=== PATIENT | female | born 1980 | race Caucasian/White ===

== ENCOUNTER 2020-08-13 13:56 | Emergency (ER) | payer OTHER, SELFPAY ==
[2020-08-13 14:05] VITALS: BP 142/79; PULSE 73; RESP 14; TEMP 36.9; O2SAT 97; BMI 27.8
--- NOTE | 2020-08-13 14:24 | HMH.EDUTC ---
[facility] [place] Clinical Impression: Sinusitis Qualifiers: Sinusitis location: unspecified location Chronicity: acute Recurrence: non-recurrent Qualified Code(s): J01.90 - Acute sinusitis, unspecified Disposition: Home, Self-Care Condition on Discharge: Good Instructions: Sinusitis, DI for Sinusitis Additional Instructions: Drink plenty of fluids. Take tylenol for pain or fever. Return if you begin to have difficulty breathing. Follow up with your regular doctor. GO TO THE ER FOR ANY WORSENING SYMPTOMS Prescriptions: Brompheniramine/Pseudoephed/Dm [Bromfed Dm Cough Syrup] 5 ml PO Q6HP PRN #240 syrup PRN Reason: Cough Transmission Status: Received by [facility] Azithromycin [Z-Chinmay 250mg Tab*] 250 mg PO UD DOSE PK #6 tab Transmission Status: Received by [facility] Referrals: Poly Horn [Primary Care Provider] - Forms: Work/School Release Time of Disposition: 14:25 Medical Decision Making - Medical Records Medical records reviewed: No: I reviewed the patient's medical records. - Kyle Inquiry Pt receiving controlled substance: No Vital Signs: 08/13/20 14:05 08/13/20 14:28 Temperature 98.5 F 98.5 F Temperature Source Oral Pulse Rate 73 Pulse Rate [Right Brachial] 73 Respiratory Rate 14 14 Blood Pressure 142/79 H Blood Pressure [Right Arm] 142/79 H Blood Pressure Mean [Right Arm] 100 Blood Pressure Source [Right Arm] Automatic Cuff Blood Pressure Position [Right Arm] Sitting 02 Sat by Pulse Oximetry 97 Oxygen Delivery Method Room Air Orders (Tests/Meds): ORDERS Category Date Time Status Covid-19 Nasal PCR ([facility]) Routine Lab 08/13/20 14:10 [place] [facility] [place] - General Stated complaint: cov test Time Seen by Provider: 08/13/20 14:05 Mode of Arrival: Ambulatory Source of Information: Patient Limitations: No Limitations Description of Symptoms (Recalled from Triage Doc. by RN): PATIENT C/O HEADACHE, SINUS CONGESTION, SOA, AND LOSS OF SMELL. WAS RECENTLY EXPOSED TO COVID HEENT Symptoms (Recalled from RN notes): Yes Resp Symptoms (Recalled from RN notes): No Skin Symptoms (Recalled from RN notes): No MS Symptoms (Recalled from RN notes): No Functional Status (Recalled from RN notes): WNL - History of Present Illness Provider Complaint: She c/o 2 days of chest and sinus congestion. She has also lost her sense of smell. - Related Data Previous Rx's Medication Instructions Recorded Azithromycin [Z-Chinmay 250mg Tab*] 250 mg PO UD DOSE PK #6 tab 08/13/20 Brompheniramine/Pseudoephed/Dm 5 ml PO Q6HP PRN #240 syrup 08/13/20 [Bromfed Dm Cough Syrup] Allergies Allergy/AdvReac Type Severity Reaction Status Date / Time prednisone [PREDNISONE] Allergy Unknown SEVERE Verified 08/13/20 14:18 RESPIRTORY ISSUES tramadol [TRAMADOL] Allergy Unknown SEVERE Verified 08/13/20 14:18 RESPIRTORY ISSUE - Worker's Comp Is this a Worker's Comp case?: No [facility] History - Hepatitis A Screen Drug use history?: No High risk sexual behaviors?: No History of sexually transmitted infection?: No Currently employed?: No Childcare worker?: No Do you have indoor plumbing?: Yes Do you have electricity?: Yes Attestation statement:: This patient has been screened for Hepatitis A risk factors. I have reviewed the patient's past medical history: Yes - Social History Alcohol Intake: never Occupational Status: other ROS Obtained: Yes All systems reviewed & no additional complaints - Constitutional Constitutional: Reports system reviewed and no additional complaints, except as docu - Eyes Eyes: Reports system reviewed and no additional complaints, except as docu - ENT Ears, Nose, Mouth, and Throat: Reports system reviewed and no additional complaints, except as docu - Cardiovascular Cardiovascular: Reports system reviewed and no additional complaints, except as docu - Respiratory Respiratory: Reports system reviewed
[2020-08-13 14:28] VITALS: BP 142/79; PULSE 73; RESP 14; TEMP 36.9; O2SAT 97
--- NOTE | 2020-08-14 09:15 | PC.NURSE ---
attempted to contact patient re: covid results, incorrect phone number in system, unable to reach her emergency contact
--- NOTE | 2020-08-14 09:35 | PC.NURSE ---
informed pt of positive covid status.
== END 2020-08-13 14:30 | disposition home or self-care (01) ==
PROVIDERS: Emergency Provider Nurse Practitioner Family; PCP Nurse Practitioner Family
DX: U07.1 COVID-19 (principal); J01.90 Acute sinusitis, unspecified
CPT/HCPCS: 99202; G0463; U0003

== ENCOUNTER 2025-05-15 08:59 | Outpatient (CLI) | payer BC, SELFPAY ==
--- NOTE | 2025-05-15 09:02 | US_ITS ---
FINAL REPORT TECHNIQUE: Real-time grayscale and color ultrasound of the thyroid was performed. CLINICAL HISTORY: ACQUIRED HYPOTHYROIDISM COMPARISON: None FINDINGS: The thyroid gland volume is 3.3 mL on the right and 2.1 mL on the left. The isthmus measures 4 mm. The parenchyma is diffusely heterogeneous. The thyroid gland is mildly atrophic. Findings are suggestive of chronic thyroiditis. Nodules: No suspicious thyroid nodules. There is a small benign cyst measuring up to 7 mm within or adjacent to the left lobe. IMPRESSION: No suspicious nodules. Abnormal appearance to the thyroid suggesting chronic thyroiditis. Reviewed, Interpreted and Dictated by Mara Goel MD Transcribed by Paola Koenig Authenticated and [facility]
--- OUTSIDE RECORDS SUMMARY | 2025-05-15 09:02 | XMS_ITS | Clinical Summary ---
[facility] Address [address] [place] [address] Care Team Providers Care Subgrade Tester Name Role Phone Provider, No Known Primary Care Provider Unavail able Allergies Active Allergy Reactions Criticality Noted Date Comments Prednisone Arrhythmia Medium 08/01/2017 Tramadol Arrhythmia Medium 08/01/2017 Medications amoxicillin-clav ulanate (AUGMENTIN) 875-125 MG per tabletIndication s:Bronchitis Take 1 tablet by mouth 2 (Two) Times a Day. 20 tablet 08/01/2017 Active Active Problems No known active problems Social History Tobacco Use Types Packs/Day Years Used Date Smoking Tobacco: Never Assessed Abuse Screen Answer Date Recorded Unsafe at Home or Work/School Not on file Feels Threatened by Someone? Not on file 04/2023 Does Anyone Keep You from Co ntacting Others or Doint Things Outside the Home? Not on file 03/05/2023 Physical Sign of Abuse Present Not on file 1 Housing Stability Answer Date Recorded Current Living Arrangements Not on file 02/22 Potentially Unsafe Housing Conditions Not on brigitte e 03/05/2023 Family and Community Support Answer Chava e Recorded Help with Day-to-Day Activities Not on file 03/05/2023 Lonely or Isolated Not on file 03/05/2023 Employment Answer Date Recorded Do you want help finding or keeping work or a maxi b? Not on file 03/05/2023 Disabilities Answer Date Recorded Concentrating, Remembering, or Making Decisions Difficulty Not on file 03/05/2023 Doing Errands Independently Difficulty Not on fi le 03/05/2023 Education Answer Date Recorded Help with school or training? Not on file Preferred Language Not on file 03/05/2023 Comments Unknown Sex and Gender Information Value Date Recorded Sex Assigned at Not on file Legal Sex Female 12:18 PM EST Gender Identity Not on file Sexual Orientation Not on file Last Filed Vital Signs Vital Sign Reading Time Taken Comments Blood Pressure - - Pulse 77 08/01/2017 12:48 PM EST Temperature 36.8 C (98.3 F) 08/01/2017 12:48 PM EST Respiratory Rate 20 08/01/2017 12:48 PM EST Oxygen Saturation 98% 08/01/2017 12:48 PM EST Inhaled Oxygen Concentration - - Weight 75.3 kg (166 lb) 08/01/2017 12:48 PM EST Height 157.5 cm (5' 2 ) 08/01/2017 12:48 PM EST Body Mass Index 30.36 08/01/2017 12:48 PM EST Plan of Treatment Health Maintenance Due Date Last Done Comments Annual Gynecologic Pelvic an d Breast Exam 1981 TDAP/TD VACCINES (1 - Tdap) 2000 ANNUAL PHYSICAL 08/01/2017 HEPATITIS C SCREENING 08/01/2017 MAMMOGRAM 2021 INFLUENZA VACCINE 12/23/2024 Pneumococcal Vaccine 0-49 Aged Out No longer eligible based on patient's age to complete this topic Insurance Care Teams Subgrade Tester Relationship Specialty Start Date End Date Provider, No Known [facility] [place] [address] PCP - General 08/01/17
== END 2025-05-15 23:59 | disposition home or self-care (01) ==
LOC: RAD 08:59
PROVIDERS: PCP Nurse Practitioner Family; Visit Provider Nurse Practitioner
DX: E03.9 Hypothyroidism, unspecified (principal); E04.9 Nontoxic goiter, unspecified
CPT/HCPCS: 76536